=== PATIENT | female | born 1940 | race Caucasian/White ===

== ENCOUNTER → 2016-05-12 | Outpatient (CLI) | payer BC ==
[~2016-05-12] MED LIST: ADVIN25/60 INH; ALBUAER19 INH; ANAS1TAB19 PO; ASPI81TA28 PO; CALC-323 PO; CHOL100027 PO; CICL0.7718 TOP; EFF/375 PO; FEXO1TAB46 PO; HYDR25TA4 PO; LORA0.5T12 PO; METO1TAB66 PO; MISCCAP80 PO; TRMCR130WC TOP; VALA1TAB31 PO
[2016-05-12 13:25] LABS: HEMATOCRIT 40.3 % (37-47); MEAN CELL VOLUME 92.2 fL (80-100); MEAN CORPUSCULAR HEMOGLOBIN 31.6 pg (25-34); MEAN CORPUSCULAR HGB CONC 34.2 g/dl (32-36); MEAN PLATELET VOLUME 10.2 fL (7.4-10.4); PLATELET COUNT 377 K/uL (130-400); RED BLOOD COUNT 4.37 M/uL (4.2-5.4); WHITE BLOOD COUNT 6.91 K/uL (4.8-10.8)
[2016-05-12 13:54] LABS: BLOOD UREA NITROGEN 18 mg/dl (7-18); BUN/CREATININE RATIO 20.2 (10-20); CALCIUM 9.2 mg/dl (8.5-10.1); CARBON DIOXIDE 29 mmol/L (21-32); CHLORIDE 98 mmol/L (98-107); CREATININE 0.87 mg/dl (0.60-1.20); GLUCOSE 90 mg/dl (70-99); POTASSIUM 3.9 mmol/L (3.5-5.1); SODIUM 137 mmol/L (136-145)
== END | disposition home or self-care (01) ==
LOC: C.LABBC 11:36
PROVIDERS: ATTEND Family Medicine
DX: M85.80 Other specified disorders of bone density and structure, unspecified site (principal); E55.9 Vitamin D deficiency, unspecified; I10 Essential (primary) hypertension; K59.00 Constipation, unspecified

== ENCOUNTER → 2016-06-19 | Outpatient (CLI) | payer BC ==
[2016-06-19 17:27] LABS: THYROID STIMULATING HORMONE 1.95 uIu/ml (0.300-4.500)
== END | disposition home or self-care (01) ==
LOC: C.LABBC 14:33
PROVIDERS: ATTEND Family Medicine
DX: K59.00 Constipation, unspecified (principal); L85.3 Xerosis cutis

== ENCOUNTER → 2016-06-21 | Outpatient (CLI) | payer BC | END | disposition home or self-care (01) | LOC: C.MAMM 08:35 | PROVIDERS: ATTEND Family Medicine | DX: M85.80 Other specified disorders of bone density and structure, unspecified site (principal); Z85.3 Personal history of malignant neoplasm of breast; Z78.0 Asymptomatic menopausal state ==

== ENCOUNTER → 2016-07-25 | Outpatient (CLI) | payer BC ==
[2015-07-26 13:45] VITALS: BP 119/78; PULSE 68
[~2016-07-25] MED LIST changes: +METO-452 PO; -METO1TAB66 PO
[2016-07-25 13:18] VITALS: BP 150/80; PULSE 66; TEMP 37; O2SAT 95
--- NOTE | 2016-07-25 17:06 | Radiation Oncology Follow-Up ---
Radiation Oncology Follow-Up Date of Visit Jul 25, 2016. Reason For Visit Annual follow-up Radiation Completion Date 12/24/12 Diagnosis (1) Carcinoma of breast Status: Resolved Onset Date: 09/30/2012 Stage: l Permanent Comment: Abnormal left breast mammogram 02/19/2012 Status post left breast biopsy revealing infiltrating lobular carcinoma 2012 Status post partial mastectomy and sentinel lymph node biopsy 2 lesions identified #1 invasive lobular carcinoma, [id number], grade 3 estrogen receptor positive progesterone receptor negative HER-2/estrada negative, Oncotype DX score 25 #2 invasive lobular carcinoma [id number], grade 2, estrogen receptor positive progesterone receptor positive HER-2/estrada negative, Oncotype DX score of 18 Systemic chemotherapy Status post completion of radiation therapy 12/24/2012 received 6120 cGy Last Edited By: Leesa Singer on Jul 20, 2014 16:33 Interim History She's been doing well over this past year. She denies any changes to her breast. She is noted no masses or tenderness and no change of the axilla. She' s had no swelling of her arm. She is up-to-date on mammography. She continues annual visits and mammography in [place]. She is on Arimidex. She does have the side effect of hot flashes. She is on Effexor which helps to decrease the hot flashes. She did state that she tries to decrease caffeine prior to mammography to help decrease discomfort during imaging. Allergies Coded Allergies: Horse Serum Proteins (Verified Allergy, Unknown, SWELLING AT SITE WITH TETANUS SHOT 20 YRS AGO, 11/27/15) Adhesives (Verified Adverse Reaction, Intermediate, RED, ITCHY RASH WITH BANDAIDS, 11/27/15) Home Medications Scheduled Anastrozole (Arimidex), 1 MG PO HS Aspirin (Aspirin Ec), 81 MG PO HS Calcium Citrate-Vitamin D (Citracal Maximum), 630 MG PO NOON Cholecalciferol (Vitamin D 1000 Unit), 2,000 INTER.UNIT PO QAM Fexofenadine Hcl (Sybil), 180 MG PO QAM Fluticasone Prop/Salmeterol (Advair Diskus 250/50 60 Dose), 1 PUFF INH BID Hydrochlorothiazide (Hctz), 25 MG PO QAM Metoprolol Succinate (Toprol Xl), 50 MG PO QAM Probiotic Product (Probiotic), 1 CAP PO DAILY Venlafaxine Hcl (Effexor), 37.5 MG PO HS Scheduled PRN Albuterol Inhaler (Ventolin Inhaler), 2 PUFFS INH QID PRN for Wheezing Lorazepam (Lorazepam), 1 TAB PO HS PRN for Anxiety Triamcinolone Acet (Aristocort 0.1%), 1 APPLN TOP BID PRN for skin irritation Valacyclovir Hcl (Valtrex), 1 GM PO Q12 PRN for FEVER BLISTER Review of Systems Gastrointestinal: Symptoms: WNL GI Comments: Slight Constipation - takes stool softeners PRN Oral: Symptoms: No Problems Respiratory: Symptoms: WNL Other Respiratory: Dry cough at times - attributes to allergies (albuterol PRN ) Urinary: Symptoms: WNL Skin: Symptoms: No Problems Breast: Right Upper Arm Measurement: 28.1 Right Mid Arm Measurement: 25.8 Right Wrist Measurement: 16.2 Left Upper Arm Measurement: 29.1 Left Mid Arm Measurement: 24.6 Left Wrist Measurement: 16.1 Arm Dominence: Right Physical Exam Vital Signs Date Time Temp Pulse Resp B/P Pulse Ox O2 Delivery O2 Flow Rate FiO2 07/25/16 13:18 37.0 66 16 150/80 95 Pain: Side: Bilateral Patient Pain Scale: 0 - 10 Initial Pain Intensity: 2.0 Fatigue: None General Appearance: no apparent distress Eyes: normal inspection, EOMI ENT: normal ENT inspection, hearing grossly normal Neck: no adenopathy, thyroid normal Respiratory/Chest: lungs clear, no respiratory distress, no accessory muscle use Breast: Breast examination reveals well-healed incisions of the left breast. There are no masses or tenderness and no axillary adenopathy. There is no area of fibrous tissue in the area of her incision. Using the [place] score cosmesis she has a good outcome. There is no nipple changes or skin retractions. The right breast showed no masses or tenderness and no axillary adenopathy. Cardiovascular: regular rate, rhythm, no gallop, no murmur Abdomen: non tender, soft Extremities: no pedal edema Neurologic/Psychiatric: no motor/sensory deficits, alert, normal mood/affect Skin: warm/dry Laboratory Studies Test 05/12/16 11:40 06/19/16 14:36 White Blood Count 6.91 K/uL (4.8-10.8) Red Blood Count 4.37 M/uL (4.2-5.4) Hemoglobin 13.8 g/dL (12.0-16.0) Hematocrit 40.3 % (37-47) Mean Corpuscular Volume 92.2 fL (80-100) Mean Corpuscular Hemoglobin 31.6 pg (25-34) Mean Corpuscular Hemoglobin Concent 34.2 g/dl (32-36) RDW Standard Deviation 44.9 fL (36.4-46.3) RDW Coefficient of Variation 13.4 % (11.5-14.5) Platelet Count 377 K/uL (130-400) Mean Platelet Volume 10.2 fL (7.4-10.4) Sodium Level 137 mmol/L (136-145) Potassium Level 3.9 mmol/L (3.5-5.1) Chloride Level 98 mmol/L (98-107) Carbon Dioxide Level 29 mmol/L (21-32) Anion Gap 10.0 mmol/L (3-11) Blood Urea Nitrogen 18 mg/dl (7-18) Creatinine 0.87 mg/dl (0.60-1.20) Estimated GFR () 74.5 Estimated GFR (Non- 64.3 BUN/Creatinine Ratio 20.2 (10-20) Random Glucose 90 mg/dl (70-99) Calcium Level 9.2 mg/dl (8.5-10.1) 25-Hydroxy Vitamin D Total 39.7 ng/ml (30-100) Thyroid Stimulating Hormone (TSH) 1.950 uIu/ml (0.300-4.500) Free Thyroxine 0.98 ng/dl (0.80-1.60) Additional Studies She had a mammogram at [facility] 04/25/2016. This showed asymmetry in the right breast requires additional evaluation additional projections are related recommended an ultrasound was recommended. She had additional views and an ultrasound the same day there is no mammographic evidence of malignancy. Additional views show asymmetry to be similar in appearance to the previous mammograms, benign finding. Recommend annual screening mammogram. Assessment & Plan Plan: She is scheduled for follow-up visit in April of next year. She'll have mammography at that time also. She continues on the Arimidex as well as the Effexor. I reviewed with her decreasing the amount of caffeine she drinks to help prevent breast tenderness. We asked to return to our office in 1 year. She may call if she has any questions or concerns in the interim. Total Time In Follow-Up I spent 20 minutes speaking to the patient and performing examination. I spent 15 minutes reviewing information and completing this note. Copy To Joelle Ontiveros M.D.; Jessi Solorio, DO Problem Qualifiers (1) Carcinoma of breast: Laterality: left Qualified Codes: C50.912 - Malignant neoplasm of unspecified site of left female breast
== END | disposition home or self-care (01) ==
LOC: C.ONC 13:12
PROVIDERS: ATTEND Physician Assistant Medical
DX: Z08 Encounter for follow-up examination after completed treatment for malignant neoplasm (principal); Z92.3 Personal history of irradiation; Z85.3 Personal history of malignant neoplasm of breast

== ENCOUNTER → 2017-04-12 | Outpatient (CLI) | payer BC ==
[~2017-04-12] MED LIST changes: -CICL0.7718 TOP
[2017-04-12 17:11] LABS: BLOOD UREA NITROGEN 16 mg/dl (7-18); CALCIUM 9.5 mg/dl (8.5-10.1); CARBON DIOXIDE 32 mmol/L (21-32); CREATININE 0.94 mg/dl (0.60-1.20); GLUCOSE 91 mg/dl (70-99); POTASSIUM 3.6 mmol/L (3.5-5.1); SODIUM 132 mmol/L (136-145)
== END | disposition home or self-care (01) ==
LOC: C.LABBC 12:35
PROVIDERS: ATTEND Family Medicine
DX: I10 Essential (primary) hypertension (principal); E55.9 Vitamin D deficiency, unspecified

== ENCOUNTER → 2017-05-13 | Outpatient (CLI) | payer BC ==
[2017-05-13 17:14] LABS: BLOOD UREA NITROGEN 18 mg/dl (7-18); CALCIUM 9.1 mg/dl (8.5-10.1); CARBON DIOXIDE 31 mmol/L (21-32); CREATININE 0.83 mg/dl (0.60-1.20); GLUCOSE 97 mg/dl (70-99); POTASSIUM 3.6 mmol/L (3.5-5.1); SODIUM 134 mmol/L (136-145)
== END | disposition home or self-care (01) ==
LOC: C.LABBC 15:15
PROVIDERS: ATTEND Family Medicine
DX: Z00.00 Encounter for general adult medical examination without abnormal findings (principal); I10 Essential (primary) hypertension

== ENCOUNTER → 2017-07-16 | Outpatient (CLI) | payer BC ==
[2015-07-26 13:45] VITALS: BP 119/78; PULSE 68
[2017-07-16 13:29] VITALS: BP 132/75; PULSE 67; TEMP 36.6; O2SAT 97
--- NOTE | 2017-07-16 14:55 | Radiation Oncology Follow-Up ---
Radiation Oncology Follow-Up Date of Visit Jul 16, 2017. Reason For Visit Annual follow-up Radiation Completion Date 12/24/12 Diagnosis (1) Carcinoma of breast Status: Resolved Onset Date: 09/30/2012 Location: Left breast Histology Subtype: Lobular Stage: l Permanent Comment: Abnormal left breast mammogram 02/19/2012 Status post left breast biopsy revealing infiltrating lobular carcinoma 2012 Status post partial mastectomy and sentinel lymph node biopsy 2 lesions identified #1 invasive lobular carcinoma, [id number], grade 3 estrogen receptor positive progesterone receptor negative HER-2/estrada negative, Oncotype DX score 25 #2 invasive lobular carcinoma [id number], grade 2, estrogen receptor positive progesterone receptor positive HER-2/estrada negative, Oncotype DX score of 18 Systemic chemotherapy Status post completion of radiation therapy 12/24/2012 received 6120 cGy Last Edited By: Leesa Singer on Jul 20, 2014 16:33 Interim History She has been doing well over this past year. She denies any changes to her breast. He is noted no masses or tenderness and no change of the axilla. She has had no swelling of her arm. She occasionally has some fullness in the lateral aspect of the breast. This has been occurring since treatment. She is careful about the type of bra that she wears. She previously had lymphedema therapy and follows exercises that were given. She continues on the Arimidex. This does cause hot flashes and she therefore takes Effexor. She is up-to-date on mammography. She has a mammogram and sees her breast surgeon yearly in [place]. Allergies Coded Allergies: Horse Serum Proteins (Verified Allergy, Unknown, SWELLING AT SITE WITH TETANUS SHOT 20 YRS AGO, 11/27/15) Adhesives (Verified Adverse Reaction, Intermediate, RED, ITCHY RASH WITH BANDAIDS, 11/27/15) Home Medications Scheduled Anastrozole (Arimidex), 1 MG PO HS Aspirin (Aspirin Ec), 81 MG PO HS Calcium Citrate-Vitamin D (Citracal Maximum), 630 MG PO NOON Cholecalciferol (Vitamin D 1000 Unit), 2,000 INTER.UNIT PO QAM Fexofenadine Hcl (Sybil), 180 MG PO QAM Fluticasone Prop/Salmeterol (Advair Diskus 250/50 60 Dose), 1 PUFF INH BID Hydrochlorothiazide (Hctz), 25 MG PO QAM Metoprolol Succinate (Toprol Xl), 50 MG PO QAM Venlafaxine Hcl (Effexor), 37.5 MG PO HS Scheduled PRN Albuterol Inhaler (Ventolin Inhaler), 2 PUFFS INH QID PRN for Wheezing Lorazepam (Lorazepam), 1 TAB PO HS PRN for Anxiety Valacyclovir Hcl (Valtrex), 1 GM PO Q12 PRN for FEVER BLISTER Review of Systems Gastrointestinal: Symptoms: WNL GI Comments: Slight Constipation - takes stool softeners PRN Oral: Symptoms: No Problems Respiratory: Symptoms: WNL Other Respiratory: hx of asthma- controlled with inhalers Urinary: Symptoms: WNL Skin: Symptoms: Dry Desquamation Other Skin Symptoms: dry patches over entire skin- sees dermatology uses [facility] Breast: Right Upper Arm Measurement: 29.5 Right Mid Arm Measurement: 23.0 Right Wrist Measurement: 16.5 Left Upper Arm Measurement: 29.5 Left Mid Arm Measurement: 23.5 Left Wrist Measurement: 16.0 Arm Dominence: Right Physical Exam Vital Signs Date Time Temp Pulse Resp B/P (MAP) Pulse Ox O2 Delivery O2 Flow Rate FiO2 07/16/17 13:29 36.6 67 20 132/75 97 Fatigue: None General Appearance: no apparent distress Eyes: normal inspection, EOMI ENT: normal ENT inspection, hearing grossly normal Neck: no adenopathy, thyroid normal Respiratory/Chest: lungs clear, no respiratory distress, no accessory muscle use Breast: Breast examination reveals well-healed incisions of the left breast. There are no masses or tenderness and no axillary adenopathy. Mild fibrous changes in the medial portion of the breast. She also has telangiectasia. There is no axillary adenopathy. She has no skin retractions or nipple changes. Using the [place] score cosmesis she has a good outcome. The right breast showed no masses or tenderness and no axillary adenopathy. Cardiovascular: regular rate, rhythm, no gallop, no murmur Abdomen: non tender, soft, no organomegaly Extremities: no pedal edema Neurologic/Psychiatric: no motor/sensory deficits, alert, normal mood/affect Skin: warm/dry Pain Management Patient Reports Pain: Yes Side: Bilateral Pain Location: Hands burn and tingle Patient Preferred Pain Scale: 0 - 10 Initial Pain Intensity: 2.0 Pain Management Plan These are changes of post chemotherapy neuropathy. She does not require any pain management. Laboratory Laboratory Results: not applicable Pathology Pathology Results: not applicable Imaging Imaging Studies: were reviewed, and pertinent findings noted below Imaging Comments She had a mammogram May 01, 2017. There was no mammographic evidence of malignancy. One-year follow-up was recommended. BI-RADS Category 2. Assessment & Plan Plan: Continue regular follow-up with her primary care provider, breast surgeon , and medical oncologist. She will continue with the scheduled follow-up of mammography. A follow-up appointment with our office was not given. We discussed that she is having breast examinations at least twice per year at her other providers offices. She may call our office if she has any questions or concerns we be happy to see her. We did once again discussed the telangiectasia that this may progress over time. She knows that this is a benign side effect post treatment. Total Time In Follow-Up I spent 20 minutes speaking to the patient in performing examination. I spent 15 minutes reviewing information and completing this note. Copy To Joelle Ontiveros M.D.; Jessi Solorio, DO
== END | disposition home or self-care (01) ==
LOC: C.ONC 13:29
PROVIDERS: ATTEND Physician Assistant Medical
DX: Z08 Encounter for follow-up examination after completed treatment for malignant neoplasm (principal); Z92.3 Personal history of irradiation; Z85.3 Personal history of malignant neoplasm of breast